=== PATIENT | female | born 1950 | race Caucasian/White ===

== ENCOUNTER → 2017-04-15 | Outpatient (CLI) | payer MEDICARE ==
[~2017-04-15] MED LIST: BUPR150T4 PO; BUSP15TA PO; CEFD300C37 PO; CITA40TA5 PO; CLON1TAB23 PO; DIPH1TAB PO; FAMC500T33 PO; FLUR30CA3 PO; GABA600T14 PO; HYDR-3241 PO; HYDR50TA13 PO; LISI5TAB7 PO; MIRT15TA6 PO; PANT40TA5 PO; PRIM250T PO; ROFL500T PO; SPIR1TAB PO; TRAZ100T15 PO
== END | disposition home or self-care (01) ==
LOC: CFH 14:19
PROVIDERS: ATTEND Family Medicine
DX: E28.39 Other primary ovarian failure (principal); Z72.0 Tobacco use; Z12.31 Encounter for screening mammogram for malignant neoplasm of breast; Z13.820 Encounter for screening for osteoporosis; M81.0 Age-related osteoporosis without current pathological fracture
CPT/HCPCS: 77067; 77080; G0297

== ENCOUNTER → 2017-08-30 | Outpatient (CLI) | payer MEDICARE | END | disposition home or self-care (01) | LOC: CFH 12:57 | PROVIDERS: ATTEND Family Medicine | DX: J43.2 Centrilobular emphysema (principal) | CPT/HCPCS: 71250 ==